=== PATIENT | female | born 1940 | race Caucasian/White ===

== ENCOUNTER 2020-04-08 14:35 | Outpatient (CLI) | payer MEDICARE ==
--- NOTE | 2020-04-08 15:01 | RAD ---
LUMBAR SPINE: 04/08/20 Four views. HISTORY: Back pain. Lateral views taken with neutral, flexion and extension. FINDINGS: Lumbar vertebrae maintain height and alignment. Disc spaces are maintained. Moderate degenerative spu rring. Facet hypertrophy. Slight anterolisthesis at L5-S1 is noted with collection. IMPRESSION: Moderate degenerative changes of the lumbar spine. POS: OFF
== END 2020-04-08 14:36 | disposition home or self-care (01) ==
LOC: SCSRAD 14:35
PROVIDERS: ATTEND Psychiatry & Neurology Neurology
DX: G25.0 Essential tremor (principal); M47.816 Spondylosis without myelopathy or radiculopathy, lumbar region
CPT/HCPCS: 72120

== ENCOUNTER 2023-08-09 09:05 | Outpatient (CLI) | payer MEDICARE ==
[2023-08-09] MEDS ORDERED: Iopamidol 370 76% 100 ML VIAL ONE (10:58)
== END 2023-08-09 09:06 | disposition home or self-care (01) ==
LOC: CT 09:05
PROVIDERS: ATTEND Thoracic Surgery (Cardiothoracic Vascular Surgery)
DX: R93.89 Abnormal findings on diagnostic imaging of other specified body structures (principal); I65.22 Occlusion and stenosis of left carotid artery
CPT/HCPCS: 70498; 82565; Q9967